=== PATIENT | female | born 1950 | race Caucasian/White ===

== ENCOUNTER → 2018-09-12 | Outpatient (CLI) | payer MEDICARE ==
--- NOTE | 2018-09-12 13:53 | REP ---
Bilateral lower extremity duplex venous ultrasound: Reflux/DVT study. History: Bilateral leg edema. Evaluate for reflux. Findings: The deep veins are anechoic and fully compressible from the groin to the popliteal fossa on two-dimensional scanning. Color flow and spectral Doppler interrogation show no evidence of DVT. Edematous changes are seen in the soft tissues of the lower legs. There is a left popliteal lymph node measuring 1.3 x 1.0 x 1.7 cm. A Delgado's cyst is noted in the right popliteal fossa of 5.2 cm in greatest diameter. Reflux exam findings: There are multiple superficial collateral veins off both greater saphenous veins in the mid to distal calf. The greater saphenous veins are somewhat large. No deep system or superficial system reflux is observed on either side, however. The greater saphenous vein on the right measures 6.1 mm in AP dimension proximally at the saphenofemoral junction, 4.6 mm at mid thigh level, and 4.9 mm at the knee. The lesser saphenous vein measures 6.2 mm on the right. On the left the proximal greater saphenous vein measures 5.2 mm in AP dimension. Its dimension at mid thigh is 4.5 mm and at the knee 4.6 mm. Impression: No evidence of reflux or DVT. Right-sided Delgado's cyst. Superficial collateral veins noted bilaterally. Electronically Signed by Dirk Heard MD 09/12/2018 06:23 P
== END ==
LOC: M RAD 11:22
PROVIDERS: ATTEND Surgery Vascular Surgery
DX: I87.2 Venous insufficiency (chronic) (peripheral) (principal); M71.21 Synovial cyst of popliteal space [Baker], right knee; I70.213 Atherosclerosis of native arteries of extremities with intermittent claudication, bilateral legs

== ENCOUNTER → 2018-12-10 | Outpatient (CLI) | payer MEDICARE ==
--- NOTE | 2018-12-10 18:51 | REP ---
Clinical: Pain. Rule out venous insufficiency. Technique: Real time faith scale and color Doppler evaluation using linear high frequency transducer. Findings: Ultrasound examination of the bilateral lower extremities from the common femoral vein to the popliteal vein demonstrates normal compressibility, flow, and wave patterns in response to respiration and augmentation. There is no evidence for deep venous thrombosis. Reflux evaluation demonstrates no reflux through the bilateral deep or superficial venous systems. Multiple collateral vessels were identified extending from the greater saphenous vein bilaterally. Impression: 1. No evidence for deep venous thrombosis. 2. No evidence for reflux. Electronically Signed by Raleigh Wade MD 12/10/2018 06:43 P
== END ==
LOC: M RAD 11:38
PROVIDERS: ATTEND Surgery Vascular Surgery
DX: I87.2 Venous insufficiency (chronic) (peripheral) (principal)

== ENCOUNTER → 2018-12-17 | Outpatient (CLI) | payer MEDICARE ==
[2018-12-17 14:45] LABS: BASO # 0.1 10^3/uL (0.0-0.2); BASO % 0.4 % (0.0-1.0); EOS # 0.3 10^3/uL (0.0-0.50); EOS % 2.3 % (0.0-3.0); HEMATOCRIT 34.9 % (36.0-47.0); HEMOGLOBIN 11.6 g/dl (12.0-15.5); LYMPH # 1.5 10^3/uL (1.5-4.5); LYMPH % 12.7 % (24.0-44.0); MEAN CORPUSCULAR HEMOGLOBIN 30.2 pg (27.0-33.0); MEAN CORPUSCULAR HGB CONC 33.2 g/dl (32.0-36.5); MEAN CORPUSCULAR VOLUME 90.9 fl (80.0-96.0); MONO # 1.1 10^3/uL (0.0-0.8); MONO % 9.6 % (0.0-5.0); NEUTROPHILS # 8.6 10^3/uL (1.8-7.7); NEUTROPHILS % 74.5 % (36.0-66.0); PLATELET COUNT, AUTOMATED 341 10^3/uL (150-450); RED BLOOD COUNT 3.84 10^6/uL (4.00-5.40); WHITE BLOOD COUNT 11.5 10^3/uL (4.0-10.0)
[2018-12-17 15:15] LABS: CALCIUM LEVEL 9.5 MG/DL (8.8-10.2); CREATININE FOR GFR 1.46 MG/DL (0.55-1.30); GLOMERULAR FILTRATION RATE 37.8 (>45); POTASSIUM SERUM 4.2 MEQ/L (3.5-5.1)
== END ==
LOC: M LAB 13:59
PROVIDERS: ATTEND Surgery Vascular Surgery
DX: I87.2 Venous insufficiency (chronic) (peripheral) (principal); I70.213 Atherosclerosis of native arteries of extremities with intermittent claudication, bilateral legs

== ENCOUNTER → 2019-01-14 | Outpatient (CLI) | payer MEDICARE ==
[~2019-01-14] MED LIST: AMMO12LO; ASPI81TA26 PO; ATOR1TAB21; BUPIVACAINE HCL 0.5% 10 ML VIAL As Ordered ONE; BUPR150T3; CALC600C3 PO; COEN100T PO; D3 S1CAP PO; ESCI20TA; FURO20TA2; HEPARIN 1,000 UNITS/ML 10ML VIAL (FOR RADIOLOGY& DIALYSIS ONLY) As Ordered ONE; ISOVUE-300 61% 50ML VIAL (Q9967) As Ordered ONE; JANU50TA8; LIDOCAINE 2% MDV 20 ML VIAL As Ordered ONE; LISI40TA; MAGN400T14 PO; MIDAZOLAM INJ 2 MG/2 ML VIAL (J2250) As Ordered ONE; MUPI2OI; OMEP40CA2 PO; PROTAMINE SULF INJ 50 MG/5 ML VIAL (J2720) As Ordered ONE; SPIR-10; ZYLO300T6; diphenhydrAMINE INJ 50MG/ML VIAL (J1200) As Ordered ONE; fentaNYL 100 MCG/2 ML INJECTION (J3010) As Ordered ONE
[2019-01-14 14:00] VITALS: BP 130/64
--- NOTE | 2019-02-19 08:50 | REPIR ---
DATE OF PROCEDURE: 01/14/2019 ATTENDING SURGEON: Dr. Kerline Price PC TECH: Jessica Ambrose and Jono Martinez PREOPERATIVE DIAGNOSIS: Right lower extremity claudication. POSTOPERATIVE DIAGNOSIS: Right lower extremity claudication. PROCEDURE: Aortogram, iliofemoral angiogram, MYNX closure of the left common femoral arteriotomy. INDICATION: The patient is a 68-year-old female with right lower extremity claudication with nonpalpable pulses distally who will undergo angiography with possible angioplasty stent and/or atherectomy. Risks, benefits, and alternative options were discussed with the patient. ANESTHESIA: Was local with 10 mL of 2% lidocaine mix of 0.5% Marcaine. FLUORO TIME: 0.6 minutes. CONTRAST: 6 mL. HEPARIN: None. COMPLICATIONS: None. DRAINS: None. SPECIMENS: None. IMPLANTS: Left common femoral arteriotomy closure with a MYNX closure device. PROCEDURE: The patient was taken to the angiography suite, placed supine on the angiography table and then prepped and draped in a standard surgical fashion. The left common femoral artery was cannulated with a micropuncture needle after anesthetizing the overlying skin with 2% lidocaine mixed with 0.5% Marcaine. The micropuncture wire was advanced through the micropuncture needle which was upsized to a micropuncture sheath. A Bentson wire was advanced to the micropuncture sheath which was upsized to a 5-Portuguese sheath. An Omni flush catheter was advanced over the Bentson wire placed in the aorta and aortogram was performed. Catheter was pulled down to the level of the bifurcation of the iliac artery and an iliofemoral angiogram was performed. Catheter was then removed over the Bentson wire, the MYNX closure was used close the arteriotomy and the left common femoral artery with an additional 10 minutes of adjunctive pressure applied for hemostasis. Dressings were then applied. The patient tolerated procedure well. All instruments, sponge and needle counts were correct at the end of the case. There were no complications. Dr. Price was present for directed the entire case. The patient was transferred to the holding area and subsequently discharged in stable condition.
== END ==
LOC: M IRPRO 08:20
PROVIDERS: ATTEND Surgery Vascular Surgery
DX: I70.211 Atherosclerosis of native arteries of extremities with intermittent claudication, right leg (principal); I12.9 Hypertensive chronic kidney disease with stage 1 through stage 4 chronic kidney disease, or unspecified chronic kidney disease; I25.10 Atherosclerotic heart disease of native coronary artery without angina pectoris; N18.9 Chronic kidney disease, unspecified
CPT/HCPCS: 36200; 75625; C1760; C1769; C1887; C1894; G0269; Q9967

== ENCOUNTER → 2019-02-02 | Outpatient (CLI) | payer MEDICARE ==
[2019-02-02 13:55] VITALS: BP 114/56
--- NOTE | 2019-02-27 10:29 | REPIR ---
DATE OF PROCEDURE: 02/02/2019 ATTENDING SURGEON: Dr. Kerline Price [employer]PARATION SUPERVISOR: Arleen Zelaya and Jessica Ambrose PREOPERATIVE DIAGNOSES: Right lower extremity claudication. Chronic renal insufficiency. Continued tobacco use with E-cigarette. Aortoiliac atherosclerotic arterial occlusive disease. Bilateral lower extremity venous valvular insufficiency. PROCEDURE: Aortogram. Iliofemoral angiogram. Bilateral common femoral arterial cannulation. Aortic angioplasty with two 8 x 4 balloons. Right common iliac artery angioplasty and stent with 10 x 20 WALLSTENT postdilated with an 8 x 4 balloon. Left common iliac artery angioplasty and stent with a 10 x 20 WALLSTENT postdilated with an 8 x 4 balloon, left external iliac artery angioplasty and stent with a 10 x 39 WALLSTENT postdilated with 8 x 4 balloon. Bilateral 6-Mauritian MYNX closure devices used to close the arteriotomy in the right and left common femoral arteries. INDICATION: The patient is a 68-year-old female with significant atherosclerotic arterial occlusive disease in the aorta and iliac arteries. The patient will undergo angiogram, possible angioplasty, stent and/or atherectomy. Risks, benefits and alternative options were discussed with the patient. ANESTHESIA: Local with 20 mL of 2% lidocaine mixed with 0.5% Marcaine, Benadryl 50 mg. FLUORO TIME: 4.5 minutes. CONTRAST: 17 mL of ISOVUE 300. HEPARIN: 7000 units, protamine 50 mg COMPLICATIONS: None. DRAINS: None. SPECIMENS: None. IMPLANTS: Bilateral 6-Mauritian MYNX closure device. PROCEDURE: Patient was taken to the angiography suite, placed supine on the angiography room table and then prepped and draped in the standard surgical fashion. Both common femoral arteries were cannulated and 6-Mauritian sheath placed. The patient was given heparin after which the aorta with angioplastied with two 8 x 4 balloons simultaneously. The bilateral common iliac arteries were angioplastied and stented with 10 x 20 WALLSTENT and postdilated with 8 x 4 balloon. The left external iliac artery underwent angioplasty and stenting with a 10 x 39 WALLSTENT postdilated with an 8 x 4 balloon. The completion aortogram showed resolution of the stenosis in the distal aorta and the common iliac arteries and the left external iliac artery with excellent flow into the femoral artery. The catheters and wires were removed. The sheath was removed and bilateral 6-Mauritian MYNX closure was used close the arteriotomy in the right left common femoral artery with an additional 10 minutes adjunctive pressure applied for hemostasis. Dressings were then applied. The patient tolerated the procedure well. All instrument, sponge and needle counts were correct at the end of the case. There were no complications. Dr. Price was present for directed the entire case. The patient was transferred to the holding area and subsequently discharged in stable condition.
== END ==
LOC: M IRPRO 06:49
PROVIDERS: ATTEND Surgery Vascular Surgery
DX: I70.211 Atherosclerosis of native arteries of extremities with intermittent claudication, right leg (principal); I70.0 Atherosclerosis of aorta; I87.2 Venous insufficiency (chronic) (peripheral); I12.9 Hypertensive chronic kidney disease with stage 1 through stage 4 chronic kidney disease, or unspecified chronic kidney disease; N18.9 Chronic kidney disease, unspecified; E78.5 Hyperlipidemia, unspecified; J44.9 Chronic obstructive pulmonary disease, unspecified; F31.9 Bipolar disorder, unspecified; E11.9 Type 2 diabetes mellitus without complications; I25.10 Atherosclerotic heart disease of native coronary artery without angina pectoris; K21.9 Gastro-esophageal reflux disease without esophagitis; Z72.0 Tobacco use
CPT/HCPCS: 37221; 37223; C1725; C1760; C1769; C1876; C1887; C1894; J1200; J2720; Q9967

== ENCOUNTER → 2019-03-10 | Outpatient (CLI) | payer MEDICARE ==
[~2019-03-10] MED LIST changes: -BUPIVACAINE HCL 0.5% 10 ML VIAL As Ordered ONE; -HEPARIN 1,000 UNITS/ML 10ML VIAL (FOR RADIOLOGY& DIALYSIS ONLY) As Ordered ONE; -ISOVUE-300 61% 50ML VIAL (Q9967) As Ordered ONE; -LIDOCAINE 2% MDV 20 ML VIAL As Ordered ONE; -MIDAZOLAM INJ 2 MG/2 ML VIAL (J2250) As Ordered ONE; -PROTAMINE SULF INJ 50 MG/5 ML VIAL (J2720) As Ordered ONE; -diphenhydrAMINE INJ 50MG/ML VIAL (J1200) As Ordered ONE; -fentaNYL 100 MCG/2 ML INJECTION (J3010) As Ordered ONE
--- NOTE | 2019-03-10 15:17 | REP ---
BILATERAL LOWER EXTREMITY DUPLEX DOPPLER ARTERIAL ULTRASOUND: Real-time sonographic ultrasound evaluation and duplex Doppler interrogation of bilateral lower extremity arterial systems is performed. Diffuse calcific plaque is noted bilaterally. AAKASH right is 1.1 and left 1.0. Biphasic and triphasic waveforms are seen diffusely bilaterally except for monophasic waveform in the proximal right anterior tibial artery and in the left profunda. There is somewhat elevated peak systolic velocity in the right common femoral artery suggesting possibly mild stenosis at that location. Otherwise no definite duplex Doppler sonographic evidence of hemodynamically significant stenosis bilaterally. PEAK SYSTOLIC VELOCITY RIGHT LEFT Common femoral artery 208.2 cm/s 117.0 cm/s Profunda 76.4 121.5 Proximal SFA 138.0 138.8 Superficial femoral artery mid 120.0 147.1 Superficial femoral artery distal 137.2 72.7 Popliteal 118.6 86.2 Proximal anterior tibial artery 59.4 37.5 Tibial peroneal trunk 61.1 76.4 Proximal posterior tibial artery 85.2 38.4 Distal posterior tibial artery 79.1 81.0 Distal anterior tibial artery 68.0 21.8 IMPRESSION: Diffuse calcific plaque bilaterally. Possible mild stenosis right common femoral artery. Electronically Signed by Marco Browning MD 03/10/2019 04:58 P
== END ==
LOC: M RAD 11:22
PROVIDERS: ATTEND Physician Assistant
DX: I70.213 Atherosclerosis of native arteries of extremities with intermittent claudication, bilateral legs (principal)

== ENCOUNTER → 2019-03-26 | Outpatient (REF) | payer MEDICARE ==
[2019-03-28 00:06] LABS: ANGIOTENSIN 1 CONVERTING ENZYM < 15 U/L (14-82); FREE KAPPA LIGHT CHAINS SERUM 81.6 mg/L (3.3-19.4); FREE LAMBDA LIGHT CHAINS SERUM 42.3 mg/L (5.7-26.3); KAPPA/LAMBDA RATIO SERUM 1.93 (0.26-1.65)
[2019-03-31 13:26] LABS: ALBUMIN % 51.2 % (55.8-66.1); ALPHA-1-GLOBULIN % 4.7 % (2.9-4.9); ALPHA-1-GLOBULINS 0.38 GM/DL (0.17-0.41); ALPHA-2-GLOBULINS 1.08 GM/DL (0.42-0.99); ALPHA-2-GLOBULINS % 13.5 % (7.1-11.8); BETA-1-GLOBULINS % 6.2 % (4.7-7.2); BETA-2-GLOBULINS 0.47 GM/DL (0.19-0.55); BETA-2-GLOBULINS % 5.9 % (3.2-6.5); GAMMA GLOBULIN % 18.5 % (11.1-18.8); GAMMA GLOBULINS 1.48 GM/DL (0.65-1.58)
== END ==
LOC: M LAB REF 12:45
PROVIDERS: ATTEND Internal Medicine Nephrology
DX: E83.52 Hypercalcemia (principal)

== ENCOUNTER → 2019-12-08 | Outpatient (CLI) | payer MEDICARE ==
[~2019-12-08] MED LIST changes: -OMEP40CA2 PO; +OMEP40CA97 PO
--- NOTE | 2019-12-09 07:42 | REP ---
Clinical: Symptoms related to atherosclerotic disease and intermittent claudication. Technique: Real time browning scale and color Doppler evaluation of the bilateral lower extremity arterial vasculature using linear high frequency transducer. Comparison: 03/10/2019 Findings: Browning scale and color images demonstrate mild to moderate amounts of bilateral atheromatous plaquing. Left lower extremity demonstrates primarily triphasic and biphasic arterial wave forms with the exception of monophasic wave form through the profunda. Mild areas of narrowing are suggested without significant stenosis or occlusion identified. Right lower extremity demonstrates primarily triphasic arterial wave forms to the level of the popliteal artery and proximal anterior tibial artery followed by monophasic wave patterns through the tibioperoneal trunk and posterior tibial artery to the level of the ankle including high diastolic flow noted in the posterior tibial artery to the ankle of uncertain significance. Peak systolic velocities (cm/sec) RIGHT LEFT AAKASH 1.1 1.1 Common femoral artery 129.4 147.6 Profunda femoris 84.0 114.6 SFA (proximal) 109.3 144.4 SFA (mid) 143.0 109.7 SFA (distal) 145.9 136.3 Popliteal artery 112.1 66.1 LINCOLN (prox.) 56.5 36.8 Tibioperoneal trunk 79.1 (mono) 59.4 CHAPLAINCY (prox.) 73.9 (mono) 82.4 CHAPLAINCY (distal) 91.8 (mono) 82.9 LINCOLN (distal) 59.7 65.0 Impression: Atheromatous changes with areas of narrowing but no obvious focal occlusion or stenosis. Electronically Signed by Raleigh Wade MD 12/09/2019 07:33 A
== END ==
LOC: M RAD 12:28
PROVIDERS: ATTEND Physician Assistant
DX: I70.213 Atherosclerosis of native arteries of extremities with intermittent claudication, bilateral legs (principal)

== ENCOUNTER → 2020-04-05 | Outpatient (REF) | payer MEDICARE ==
[2020-04-05 19:22] LABS: PERCENT SATURATION 9.1 % (13.2-45.0)
== END ==
LOC: M LAB REF 17:04
PROVIDERS: ATTEND Internal Medicine Nephrology
DX: N18.3 Chronic kidney disease, stage 3 (moderate) (principal); D63.1 Anemia in chronic kidney disease